=== PATIENT | female | born 1970 | race Caucasian/White ===

== ENCOUNTER 2016-06-26 08:41 | Emergency (ER) | payer BC ==
[2016-06-26 10:12] VITALS: BP 125/73
--- NOTE | 2016-06-26 10:49 | UC ---
Elbow Pain - HPI Summary HPI Summary: 45 yo female with right elbow x 1 week slipped at work and grabbed railing which resulted in twisting her right elbow she is right handed no hx of elbow problems in past - History of Current Complaint Chief Complaint: UCUpperExtremity Stated Complaint: RIGHT ELBOW COMPLAINT Time Seen by Provider: 06/26/16 10:32 Hx Obtained From: Patient Hx Last Menstrual Period: 06/24/16 Onset/Duration: Weeks Severity Initially: Moderate Severity Currently: Mild Pain Intensity: 4 Pain Scale Used: 0-10 Numeric Character: Aching, Throbbing Aggravating Factor(s): Movement, Pulling, Twisting Alleviating Factor(s): Rest - Allergies/Home Medications Allergies/Adverse Reactions: Allergies Allergy/AdvReac Type Severity Reaction Status Date / Time Naproxen [From Naprosyn] Allergy Severe Rash Verified 06/26/16 09:57 PMH/Surg Hx/FS Hx/Imm Hx Previously Healthy: Yes Endocrine History Of: Denies: Diabetes, Thyroid Disease, Hyperthyroidism, Hypothyroidism, Dyslipidemia Cardiovascular History Of: Denies: Cardiac Disorders, Hypertension, Pacemaker/ICD, Myocardial Infarction , Congestive Heart Failure, Atrial Fibrillation, Deep Vein Thrombosis, Bleeding Disorders Respiratory History Of: Denies: COPD, Asthma, Bronchitis, Pneumonia, Pulmonary Embolism GI/ History Of: Denies: Gastroesophageal Reflux, Ulcer, Gastrointestinal Bleed, Gall Bladder Disease, Kidney Stones, Diverticulitis, Renal Disease, Urosepsis Neurological History Of: Denies: TIA, CVA, Dementia, Seizures, Migraine Psychological History Of: Denies: Anxiety, Depression, Bipolar Disorder, Schizophrenia, Post Traumatic Stress Disorder Cancer History Of: Denies: Lung Cancer, Colorectal Cancer, Breast Cancer, Prostate Cancer, Cervical Cancer Other History Of: Negative For: HIV, Hepatitis B, Hepatitis C - Surgical History Surgical History: Yes Surgery Procedure, Year, and Place: . SKIN CANCER--2013 - Family History Known Family History: Positive: Other - DJD Family History: no known cardio-vascular issues in family - Social History Alcohol Use: None Substance Use Type: None Smoking Status (MU): Light Every Day Tobacco Smoker Type: Cigarettes Amount Used/How Often: 1/2 PPD Length of Time of Smoking/Using Tobacco: 25 Years Have You Smoked in the Last Year: Yes - Immunization History Most Recent Influenza Vaccination: Not the 2016/2016 Season Review of Systems Constitutional: Negative Skin: Negative Eyes: Negative ENT: Negative Respiratory: Negative Cardiovascular: Negative Gastrointestinal: Negative Genitourinary: Negative Motor: Negative Neurovascular: Negative Musculoskeletal: Arthralgia Neurological: Negative Psychological: Negative All Other Systems Reviewed And Are Negative: Yes Physical Exam Triage Information Reviewed: Yes Appearance: Well-Appearing, No Pain Distress, Well-Nourished Vital Signs: Initial Vital Signs Temp 97.6 F 06/26/16 09:53 Pulse 74 06/26/16 09:53 Resp 16 06/26/16 09:53 BP 125/73 06/26/16 09:53 Pulse Ox 100 06/26/16 09:53 Vital Signs Reviewed: Yes Eyes: Positive: Conjunctiva Clear ENT: Positive: Hearing grossly normal. Negative: Nasal congestion, Nasal drainage, Tonsillar exudate, Trismus, Muffled/hoarse voice Neck: Positive: Supple, Nontender Respiratory: Positive: Lungs clear, Normal breath sounds, No respiratory distress, No accessory muscle use Cardiovascular: Positive: RRR, No Murmur Musculoskeletal: Positive: ROM Intact, No Edema, Other: - tender lateral epicondyle Neurological: Positive: Alert Psychological Exam: Normal Skin Exam: Normal Elbow Pain Course/Dx - Differential Dx/Diagnosis Provider Diagnoses: lateral epicondylitis (right) Discharge - Discharge Plan Condition: Stable Disposition: HOME Prescriptions: Ibuprofen TAB* [Motrin TAB*] 600 mg PO QID PRN #40 tab PRN Reason: Pain Patient Education Materials: Tennis Elbow (ED) Referrals: Arsenio Bui MD [Medical Doctor] - 5 Days (if not better) Additional Instructions: tennis elbow brace/remove at bedtime
--- NOTE | 2016-06-26 11:11 | RAD ---
Indication: Right elbow injury. 4 views of the elbow demonstrates no evidence of joint effusion. No fracture is identified. IMPRESSION: No fracture of the elbow is noted. No joint effusion is noted.
== END 2016-06-26 11:39 | disposition home or self-care (01) ==
LOC: UCCORT 08:41
DX: M77.11 Lateral epicondylitis, right elbow (principal); F17.210 Nicotine dependence, cigarettes, uncomplicated; Z88.8 Allergy status to other drugs, medicaments and biological substances
CPT/HCPCS: 99212; G0463

== ENCOUNTER 2016-10-06 10:03 | Emergency (ER) | payer SELFPAY ==
[2016-10-06 10:53] VITALS: BP 119/70
[2016-10-06] MEDS ORDERED: Ibuprofen TAB* 200 MG PO ONE (11:08)
--- NOTE | 2016-10-06 11:08 | UC ---
Lower Extremity/Ankle HPI - HPI Summary HPI Summary: The patient comes in today for: 1. Right little toe pain: Onset: 15 hours ago. Palliative/provocative: Pressure and walking makes the pain worse. Quality: Burning throbbing, ache. Region: Right fifth toe. Severity: 6/10 rest, and 10/10 with walking. Time: Constant. Associated symptoms: Event: About 8 PM last night she stubbed her right 5th toe into the leg of a chair. Previous treatment: Ibuprofen 600 mg at 9 AM. * - History of Current Complaint Chief Complaint: UCLowerExtremity Stated Complaint: RIGHT FOOT PINKY TOE PAIN Time Seen by Provider: 10/06/16 10:59 Hx Obtained From: Patient Hx Last Menstrual Period: 09/16/16 - Allergies/Home Medications Allergies/Adverse Reactions: Allergies Allergy/AdvReac Type Severity Reaction Status Date / Time Naproxen [From Naprosyn] Allergy Severe Rash Verified 10/06/16 10:53 PMH/Surg Hx/FS Hx/Imm Hx Previously Healthy: Yes Endocrine History Of: Denies: Diabetes, Thyroid Disease, Hyperthyroidism, Hypothyroidism, Dyslipidemia Cardiovascular History Of: Denies: Cardiac Disorders, Hypertension, Pacemaker/ICD, Myocardial Infarction , Congestive Heart Failure, Atrial Fibrillation, Deep Vein Thrombosis, Bleeding Disorders Respiratory History Of: Denies: COPD, Asthma, Bronchitis, Pneumonia, Pulmonary Embolism GI/ History Of: Denies: Gastroesophageal Reflux, Ulcer, Gastrointestinal Bleed, Gall Bladder Disease, Kidney Stones, Diverticulitis, Renal Disease, Urosepsis Neurological History Of: Denies: TIA, CVA, Dementia, Seizures, Migraine Psychological History Of: Denies: Anxiety, Depression, Bipolar Disorder, Schizophrenia, Post Traumatic Stress Disorder Cancer History Of: Denies: Lung Cancer, Colorectal Cancer, Breast Cancer, Prostate Cancer, Cervical Cancer Other History Of: Negative For: HIV, Hepatitis B, Hepatitis C - Surgical History Surgical History: Yes Surgery Procedure, Year, and Place: . SKIN CANCER--2013 - Family History Known Family History: Positive: Cardiac Disease, Hypertension, Other - DJD Family History: no known cardio-vascular issues in family - Social History Alcohol Use: Rare Substance Use Type: None Smoking Status (MU): Current Some Day Smoker Type: Cigarettes Amount Used/How Often: 1 pack weekly Length of Time of Smoking/Using Tobacco: 10 YRS Have You Smoked in the Last Year: Yes - Immunization History Most Recent Influenza Vaccination: NONE Most Recent Tetanus Shot: UTD Most Recent Pneumonia Vaccination: N/A Review of Systems Constitutional: Negative Skin: Negative Eyes: Negative ENT: Negative Respiratory: Negative Cardiovascular: Negative Gastrointestinal: Negative Genitourinary: Negative Musculoskeletal: Arthralgia All Other Systems Reviewed And Are Negative: Yes Physical Exam Triage Information Reviewed: Yes Appearance: Well-Appearing, No Pain Distress, Well-Nourished Vital Signs: Initial Vital Signs Temp 98 F 10/06/16 10:48 Pulse 68 10/06/16 10:48 Resp 16 10/06/16 10:48 BP 119/70 10/06/16 10:48 Pulse Ox 100 10/06/16 10:48 Vital Signs Reviewed: Yes Eyes: Positive: Conjunctiva Clear. Negative: Discharge ENT: Positive: Hearing grossly normal. Negative: Pharyngeal erythema, Nasal congestion, TM bulging, TM dull, TM red, Tonsillar swelling, Tonsillar exudate Dental: Negative: Gross Decay/Caries @, Dental Fracture @ Neck: Positive: Supple, Nontender, No Lymphadenopathy. Negative: Nuchal Rigidity Respiratory: Positive: Chest non-tender, Lungs clear, No respiratory distress, No accessory muscle use. Negative: Crackles, Stridor Cardiovascular: Positive: RRR, No Murmur Abdomen Description: Positive: Nontender, No Organomegaly, Soft. Negative: Distended, Guarding Musculoskeletal: Positive: Strength Intact, No Edema, Other: - Right little toe- -no marked edema, but there is slighty bluish discoloration at the base of the toe. Neurological: Positive: Alert, Muscle Tone Normal Psychological: Positive: Age Appropriate Behavior, Consolable Skin: Negative: rashes, breakdown Diagnostics - Radiology No standard instances Xray Interpretation: Positive (See Comments) - There was a fracture of the proximal phalanx on the right. Radiology Interpretation Completed By: Radiologist Lower Extremity Course/Dx - Differential Dx/Diagnosis Differential Diagnosis/HQI/PQRI: Contusion, Fracture (Closed) Provider Diagnoses: Fracture of the right 5th proximal phalanx. Discharge - Discharge Plan Condition: Stable Disposition: HOME Patient Education Materials: Toe Fracture (ED) Referrals: Emil Orozco [Primary Care Provider] - 2 Weeks (Please keep your foot elevated, taking ibuprofen as needed for pain and apply ice for the first 48 hours--20 minutes on, 20 minutes off.)
--- NOTE | 2016-10-06 11:33 | RAD ---
INDICATION: Right foot injury. TECHNIQUE: 3 views of the right foot were obtained. FINDINGS: There is a transverse fracture of the mid diaphysis of the fifth proximal phalanx. The distal fracture fragment is displaced approximately 1 cortical diameter lateral and 2 cortical diameters inferior and demonstrates dorsal and lateral angulation relative to the proximal phalanx. No additional fractures are seen. Joint spaces appear maintained. IMPRESSION: TRANSVERSE SLIGHTLY DISPLACED, ANGULATED FRACTURE OF THE FIFTH PROXIMAL PHALANX.
== END 2016-10-06 12:06 | disposition home or self-care (01) ==
LOC: UCCORT 10:03
DX: S92.511A Displaced fracture of proximal phalanx of right lesser toe(s), initial encounter for closed fracture (principal); W22.8XXA Striking against or struck by other objects, initial encounter; Y93.9 Activity, unspecified; Y92.9 Unspecified place or not applicable; Z88.6 Allergy status to analgesic agent; Z72.0 Tobacco use
CPT/HCPCS: 99213; A9270-GY; G0463

== ENCOUNTER 2016-11-05 12:46 | Emergency (ER) | payer SELFPAY ==
[2016-11-05 14:00] VITALS: BP 118/67
--- NOTE | 2016-11-05 14:15 | UC ---
Lower Extremity/Ankle HPI - HPI Summary HPI Summary: patient fracture the right 5th toe 1 month ago, still painful and swollen, sometimes numb. cant wear her sneakers. worse at night, - History of Current Complaint Chief Complaint: UCLowerExtremity Stated Complaint: RE-CK RIGHT FOOT PINKY TOE Time Seen by Provider: 11/05/16 14:01 Hx Obtained From: Patient Hx Last Menstrual Period: 10/14/16 ?: No Onset/Duration: Sudden Onset, Lasting Days Severity Initially: Moderate Severity Currently: Moderate Aggravating Factor(s): Standing, Ambulation, Other - wearing shoes Alleviating Factor(s): Rest Able to Bear Weight: Yes - Allergies/Home Medications Allergies/Adverse Reactions: Allergies Allergy/AdvReac Type Severity Reaction Status Date / Time Naproxen [From Naprosyn] Allergy Severe Rash Verified 11/05/16 14:00 PMH/Surg Hx/FS Hx/Imm Hx Previously Healthy: Yes Other History Of: Negative For: HIV, Hepatitis B, Hepatitis C - Surgical History Surgical History: Yes Surgery Procedure, Year, and Place: . SKIN CANCER--2013 - Family History Known Family History: Positive: Cardiac Disease, Hypertension, Other - DJD Family History: no known cardio-vascular issues in family - Social History Alcohol Use: Rare Substance Use Type: None Smoking Status (MU): Current Some Day Smoker Type: Cigarettes Amount Used/How Often: 1 pack weekly Length of Time of Smoking/Using Tobacco: 10 YRS Have You Smoked in the Last Year: Yes - Immunization History Most Recent Influenza Vaccination: NONE Most Recent Tetanus Shot: UTD Most Recent Pneumonia Vaccination: N/A Review of Systems Constitutional: Negative Skin: Negative Eyes: Negative ENT: Negative Respiratory: Negative Cardiovascular: Negative Gastrointestinal: Negative Genitourinary: Negative Motor: Negative Neurovascular: Negative Musculoskeletal: Arthralgia, Decreased ROM, Edema, Myalgia Neurological: Negative Psychological: Negative All Other Systems Reviewed And Are Negative: Yes Physical Exam Triage Information Reviewed: Yes Appearance: Well-Appearing, Well-Nourished, Pain Distress Vital Signs: Initial Vital Signs Temp 98.6 F 11/05/16 13:54 Pulse 74 11/05/16 13:54 Resp 14 11/05/16 13:54 BP 118/67 11/05/16 13:54 Pulse Ox 98 11/05/16 13:54 Vital Signs Reviewed: Yes Eye Exam: Normal Eyes: Positive: Conjunctiva Clear ENT Exam: Normal Dental Exam: Normal Neck exam: Normal Respiratory Exam: Normal Cardiovascular Exam: Normal Abdominal Exam: Normal Bowel Sounds: Positive: Present Musculoskeletal: Positive: Strength Intact, ROM Limited @, Edema @ - in the right 5th toe and base of toe Psychological Exam: Normal Skin Exam: Normal Lower Extremity Course/Dx - Course Course Of Treatment: hx obtained, exam performed ,meds reviewed, xray obtained fracture still noted, placed on crutches and referral to [facility]. - Differential Dx/Diagnosis Differential Diagnosis/HQI/PQRI: Contusion, Dislocation, Fracture (Closed), Infection, Osteomyelitis, Sprain, Strain Provider Diagnoses: right 5th toe fracture, non healing Discharge - Discharge Plan Condition: Stable Disposition: HOME Patient Education Materials: Toe Fracture (ED) Referrals: Emil Orozco [Primary Care Provider] - Brody Luque DPM [Doctor of Podiatric Medicine] - Additional Instructions: 1. Use the crutches until cleared by promotion producer 2. Continue to elevate 3. warm foot soaks 4. follow up with ta promotion producer RYAN
--- NOTE | 2016-11-05 14:35 | RAD ---
Indication: Fracture fifth digit. 3 views of the right fifth digit demonstrates oblique fracture proximal phalanx fifth toe. This is not significantly changed since October 06, 2016. IMPRESSION: Oblique fracture proximal phalanx fifth digit.
== END 2016-11-05 14:38 | disposition home or self-care (01) ==
LOC: UCCORT 12:46
DX: S92.514 Nondisplaced fracture of proximal phalanx of right lesser toe(s) (principal); X58.XXXD Exposure to other specified factors, subsequent encounter; Z88.6 Allergy status to analgesic agent; Z72.0 Tobacco use
CPT/HCPCS: 99211; G0463

== ENCOUNTER 2017-03-04 10:55 | Emergency (ER) | payer BC, MEDICAID ==
[2017-03-04 12:24] VITALS: BP 104/62
--- NOTE | 2017-03-04 12:41 | UC ---
Back Pain HPI - HPI Summary HPI Summary: low back pain x 1 month, ? injury to lower back moving furnitures no radiation of the pain , pain became worse over the past 2 days - History of Current Complaint Chief Complaint: UCBackPain Stated Complaint: LOWER BACK PAIN Time Seen by Provider: 03/04/17 12:26 Hx Obtained From: Patient Hx Last Menstrual Period: 03/04/17 ?: No Onset/Duration: Gradual Onset, Lasting Weeks - 4, Still Present, Worse Since - past 2 days Timing: Constant Severity Initially: Moderate Severity Currently: Severe Back Pain: Is Discrete @ - lower back Character: Aching, Spasmodic Aggravating Factor(s): Movement, Lifting, Bending, Walking, Cough Alleviating Factor(s): Rest Associated Signs And Symptoms: Positive: Pain with Weight Bearing. Negative: Swelling, Redness, Bruising, Fever, Weakness, Numbness, Tingling, Abdominal Pain , Flank Pain, Bladder Incontinence, Bowel Incontinence, Weight Loss - Allergies/Home Medications Allergies/Adverse Reactions: Allergies Allergy/AdvReac Type Severity Reaction Status Date / Time Naproxen [From Naprosyn] Allergy Severe Rash Verified 03/04/17 12:19 Home Medications: Home Medications Acetaminophen [Acetaminophen Extra Stren] 500 - 1,000 mg PO Q6H PRN 03/04/17 [ History Confirmed 03/04/17] PMH/Surg Hx/FS Hx/Imm Hx Previously Healthy: Yes Other History Of: Negative For: HIV, Hepatitis B, Hepatitis C - Surgical History Surgical History: Yes Surgery Procedure, Year, and Place: . SKIN CANCER--2013 - Family History Known Family History: Positive: Cardiac Disease, Hypertension, Other - DJD Family History: no known cardio-vascular issues in family - Social History Alcohol Use: Occasionally Substance Use Type: None Smoking Status (MU): Heavy Every Day Tobacco Smoker Type: Cigarettes Amount Used/How Often: 1/2 PPD Length of Time of Smoking/Using Tobacco: Since Age 23 Have You Smoked in the Last Year: Yes - Immunization History Most Recent Influenza Vaccination: Not the 2017/2017 Season Most Recent Tetanus Shot: UTD Most Recent Pneumonia Vaccination: N/A Review of Systems Constitutional: Negative Skin: Negative Eyes: Negative ENT: Negative Respiratory: Negative Is Patient Immunocompromised?: No All Other Systems Reviewed And Are Negative: Yes Physical Exam Triage Information Reviewed: Yes Appearance: Well-Nourished, Pain Distress Vital Signs: Initial Vital Signs Temp 98 F 03/04/17 12:16 Pulse 88 03/04/17 12:16 Resp 16 03/04/17 12:16 BP 104/62 03/04/17 12:16 Pulse Ox 100 03/04/17 12:16 Vital Signs Reviewed: Yes Eyes: Positive: Conjunctiva Clear ENT: Positive: Normal ENT inspection, Hearing grossly normal, Pharynx normal Neck: Positive: Supple, Nontender, No Lymphadenopathy Respiratory: Positive: Chest non-tender, Lungs clear, Normal breath sounds Cardiovascular: Positive: RRR, No Murmur, Pulses Normal Abdominal Exam: Normal Abdomen Description: Positive: Nontender, Soft Bowel Sounds: Positive: Present Musculoskeletal: Positive: Other: - lower back : no swelling, no erythema, + tenderness, limited ROM on flexion . Back Pain Course/Dx - Differential Dx/Diagnosis Provider Diagnoses: lower back strain Discharge - Discharge Plan Condition: Stable Disposition: HOME Prescriptions: Cyclobenzaprine TAB* [Flexeril 10 MG TAB*] 10 mg PO BID #20 tab Ibuprofen TAB* [Motrin TAB* 800 MG] 800 mg PO Q8H #30 tab Patient Education Materials: Low Back Strain (ED) Referrals: Emil Orozco [Primary Care Provider] - 7 Days
== END 2017-03-04 12:42 | disposition home or self-care (01) ==
LOC: UCCORT 10:55
DX: S39.012A Strain of muscle, fascia and tendon of lower back, initial encounter (principal); F17.210 Nicotine dependence, cigarettes, uncomplicated; X50.0XXA Overexertion from strenuous movement or load, initial encounter; Z88.6 Allergy status to analgesic agent; Z85.828 Personal history of other malignant neoplasm of skin
CPT/HCPCS: 99212; G0463

== ENCOUNTER 2018-02-13 08:34 | Emergency (ER) | payer OTHER ==
[2018-02-13 08:55] VITALS: BP 126/76
[2018-02-13] MEDS ORDERED: Acetaminophen TAB* 325 MG PO ONE (09:35)
--- NOTE | 2018-02-13 10:35 | RAD ---
Indication: LEFT greater than RIGHT pelvic pain. History of ovarian cysts. Comparison: No relevant prior exams available on the [facility] [place] PACS for comparison. Technique: Transvaginal technique pelvic ultrasound. Report: 7.1 x 4.4 x 6.0 cm retroverted uterus is remarkable for a 1.3 cm maximum dimension anterior subserosal fibroid without resulting impression on the endometrium. 8.1 mm endometrium. Physiologic trace volume of free pelvic fluid. 3.6 x 2.0 x 2.3 cm RIGHT ovary with documented vascular flow is remarkable for a 2.0 cm maximum dimension unilocular simple cyst consistent with a follicular cyst. 2.4 x 1.4 x 1.6 cm LEFT ovary with documented vascular flow is unremarkable. Negative for extra ovarian adnexal region lesions. IMPRESSION: #. Small follicular cyst RIGHT ovary without concern. #. 1.3 cm subserosal uterine fibroid without resulting impression on the endometrium.
--- NOTE | 2018-02-14 09:21 | UC ---
Complaint Female HPI - HPI Summary HPI Summary: Pt present with 4 days intermittent low pelvic pain. Pt states had a tubal ligation July. AT this time also had ovarian cysts removed. Pt states since this time has low pelvic pain with menses. Pt stats seems "to be getting worse. " Pt with menses starting Friday. Pt states concerned return of ovarian cyst. Pt called rehab office coordinator but can't be seen for several weeks sp came here. Pt states pain improved today. No fever, chills. no n/v/d. no vaginal discharge. Pt has taken APAP with little improvement. No concern for STD Pt medication reviewed this visit - History Of Current Complaint Chief Complaint: UCAbdominalPain Stated Complaint: PELVIC PAIN Time Seen by Provider: 02/13/18 09:15 Hx Obtained From: Patient, Medical Records Hx Last Menstrual Period: 02/01/18 ?: No Pain Intensity: 4 Pain Scale Used: 0-10 Numeric - Allergies/Home Medications Allergies/Adverse Reactions: Allergies Allergy/AdvReac Type Severity Reaction Status Date / Time bacitracin Allergy Unknown Rash Verified 02/13/18 08:46 naproxen Allergy "lips Verified 02/13/18 09:36 swell" Home Medications: Home Medications NK [No Home Medications Reported] 02/13/18 [History Confirmed 02/13/18] PMH/Surg Hx/FS Hx/Imm Hx Previously Healthy: Yes Other History Of: Negative For: HIV, Hepatitis B, Hepatitis C - Surgical History Surgical History: Yes Surgery Procedure, Year, and Place: . SKIN CANCER--2013. TUBAL LIGATION, JUN 2017 - Family History Known Family History: Positive: Cardiac Disease, Hypertension, Other - DJD Family History: no known cardio-vascular issues in family - Social History Occupation: Employed Full-time Lives: With Family Alcohol Use: Occasionally Substance Use Type: None Smoking Status (MU): Heavy Every Day Tobacco Smoker Type: Cigarettes Amount Used/How Often: 1/2 PPD Length of Time of Smoking/Using Tobacco: Since Age 23 Have You Smoked in the Last Year: Yes - Immunization History Most Recent Influenza Vaccination: Not the 2017/2017 Season Most Recent Tetanus Shot: UTD Most Recent Pneumonia Vaccination: N/A Review of Systems Constitutional: Negative Gastrointestinal: Abdominal Pain Genitourinary: Negative All Other Systems Reviewed And Are Negative: Yes Physical Exam - Summary Physical Exam Summary: Vital Signs Reviewed: Yes A+Ox3, no distress Eyes: Conjunctiva Clear, MENDEL. EOM intact and full ENT: Hearing grossly normal TM x 2 clear, mmoist, uvula midline, no exudate, no erythema Neck: Positive: Supple Respiratory: Positive: No respiratory distress, No accessory muscle use + CTA throughout no w/r Cardiovascular: RRR nl s1, s2 no m/r CBT <2 sec abd soft + BS nd no guarding, no distension, very mild lower abd pain with direct palp. No cva no guarding or rebound Musculoskeletal Exam: SINGH x 4 without difficulty Strength Intact, ROM Intact Neurological: Positive: Alert, + sensation throughout Psychological: Positive: Normal Response To Family Skin: Positive: no rash, no ecchymosis Triage Information Reviewed: Yes Vital Signs: Initial Vital Signs Temp 97.8 F 02/13/18 08:47 Pulse 86 02/13/18 08:47 Resp 18 02/13/18 08:47 BP 126/76 02/13/18 08:47 Pulse Ox 100 02/13/18 08:47 Diagnostics - Radiology No standard instances Radiology Interpretation Completed By: Radiologist - Patient Name: ARJUN MORRISSEY Medical Record#: [id number] Ordering Physician: Shanon Barillas MD Acct.#: [id number] : 1970 Age: 47 Sex: F Location: [facility] Exam Date: 02/13/18935 ADM Status: REG ER Order Information: US TRANSVAGINAL Accession Number: [id number] CPT: 18265 Indication: LEFT greater than RIGHT pelvic pain. History of ovarian cysts. Comparison: No relevant prior exams available on the [facility] PACS for comparison. Technique: Transvaginal technique pelvic ultrasound. Report: 7.1 x 4.4 x 6.0 cm retroverted uterus is remarkable for a 1.3 cm maximum dimension anterior subserosal fibroid without resulting impression on the endometrium. 8.1 mm endometrium. Physiologic trace volume of free pelvic fluid. 3.6 x 2.0 x 2.3 cm RIGHT ovary with documented vascular flow is remarkable for a 2.0 cm maximum dimension unilocular simple cyst consistent with a follicular cyst. 2.4 x 1.4 x 1.6 cm LEFT ovary with documented vascular flow is unremarkable. Negative for extra ovarian adnexal region lesions. IMPRESSION: #. Small follicular cyst RIGHT ovary without concern. #. 1.3 cm subserosal uterine fibroid without resulting impression on the endometrium. ___ <Electronically signed by Kevin Galo MD in OV> 02/13/18 1032 Dictated By: Kevin Galo MD Dictated Date/Time: 02/13/18 1032 Transcribed Date/Time: 02/13/18 1028 Copy to: CC:Mala FERNANDOP; Shanon Barillas MD Imaging - [facility] Imaging - [facility] [address] [address] ph [phone]) ph [phone]) ph ([phone]) This report is only to be considered final once signed by the Provider(s) as displayed in the "<Electronically Signed by >" field (s). Absence of a signature indicates the report is in a draft status and still needs to be finalized. In the event this document was created by someone other than the signing Provider, the individual initiating the document will be listed in the "Entered by:" or "Dictated by:" elizabeth. 1 of 1 Re-Evaluation - Re-Evaluation First Eval Comment: reviewed ultrasound with patient. d/w fibroid. will f/u with rehab office coordinator. CD of images given. motrin/apap. return precautions. comfrota and agreement with plan Complaint Female Dx - Course Course Of Treatment: Pt with cyclic lower pelvic discomfort -correlates with menses since tubal ligation. Pt states this week had significant discomfort sx better today - pt with ho ovarian cysts and inquired if cause. at present little discomfort. vss. non concerning exam. will check urine and ultrasound. pt declined analgesia - Differential Dx/Diagnosis Provider Diagnoses: uterine fibroid. functional ovarian cyst Discharge - Sign-Out/Discharge Documenting (check all that apply): Patient Departure All imaging exams completed and their final reports reviewed: Yes - Discharge Plan Condition: Stable Disposition: HOME Patient Education Materials: Dysmenorrhea (ED), Ovarian Cyst (ED) Referrals: Emil Orozco [Primary Care Provider] - Additional Instructions: - Okay to take Tylenol every 6 hours for pain. take with food - apply heating to your abdomen - Contact your lab nurse to schedule a follow-up appointment. - If your pain returns, you develop fevers, vomiting or other concerns it is recommended you go directly to the emergency department for further evaluation - Billing Disposition and Condition Condition: STABLE Disposition: Home
== END 2018-02-13 10:55 | disposition home or self-care (01) ==
LOC: UCCORT 08:34
DX: F17.210 Nicotine dependence, cigarettes, uncomplicated (principal); D25.2 Subserosal leiomyoma of uterus; N83.01 Follicular cyst of right ovary; Z88.6 Allergy status to analgesic agent; Z88.3 Allergy status to other anti-infective agents
CPT/HCPCS: 76830; 81003; 84702; 99212; A9270-GY; G0463

== ENCOUNTER 2018-03-15 11:06 | Emergency (ER) | payer OTHER ==
[2018-03-15 12:52] VITALS: BP 138/72
--- NOTE | 2018-03-15 13:10 | UC ---
Neck Pain HPI - HPI Summary HPI Summary: Pt c/o gradual onset of upper back and neck pain and stiffness that began 6 days ago. Pt has been bent position for prolonged periods of time during the for task at work. Pt reports that she has tingling and buring pain that radiated from posterior cervical neck to upper extremities. - History of Current Complaint Chief Complaint: UCUpperExtremity Stated Complaint: NECK AND SHOULDER PAIN Time Seen by Provider: 03/15/18 12:57 Hx Obtained From: Patient Hx Last Menstrual Period: 02/01/18 ?: No Onset/Duration Of Injury/Symptoms: Days Mechanism Of Injury: No Known Trauma Timing: Constant Onset/Duration: Gradual Onset, Still Present Severity: Moderate Pain Intensity: 7 Location: Diffuse Character: Dull, Aching, Stiff, Burning Aggravating Factors: Movement Alleviating Factors: Position Associated Signs & Symptoms: Positive: Weakness, Paresthesia - Risk Factors Meningitis Risk Factors: Negative - Allergies/Home Medications Allergies/Adverse Reactions: Allergies Allergy/AdvReac Type Severity Reaction Status Date / Time bacitracin Allergy Unknown Rash Verified 02/13/18 08:46 naproxen Allergy "lips Verified 02/13/18 09:36 swell" Home Medications: Home Medications Acetaminophen [Tylenol Extra Strength] 1,000 mg PO ONCE 03/15/18 [History Confirmed 03/15/18] Naproxen Sodium [Aleve] 220 mg PO ONCE 03/15/18 [History Confirmed 03/15/18] PMH/Surg Hx/FS Hx/Imm Hx Previously Healthy: Yes Other History Of: Negative For: HIV, Hepatitis B, Hepatitis C - Surgical History Surgical History: Yes Surgery Procedure, Year, and Place: . SKIN CANCER--2013. TUBAL LIGATION, JUN 2017 - Family History Known Family History: Positive: Cardiac Disease, Hypertension, Other - DJD Family History: no known cardio-vascular issues in family - Social History Occupation: Employed Full-time Lives: With Family Alcohol Use: Occasionally Substance Use Type: None Smoking Status (MU): Heavy Every Day Tobacco Smoker Type: Cigarettes Amount Used/How Often: 1/2 PPD Length of Time of Smoking/Using Tobacco: Since Age 23 Have You Smoked in the Last Year: Yes - Immunization History Most Recent Influenza Vaccination: Not the Season Most Recent Tetanus Shot: UTD Most Recent Pneumonia Vaccination: N/A Review Of Systems Constitutional: Positive: Negative Skin: Positive: Negative Eyes: Positive: Negative ENT: Positive: Negative Respiratory: Positive: Negative Cardiovascular: Positive: Negative Gastrointestinal: Positive: Negative Genitourinary: Positive: Negative Musculoskeletal: Positive: Myalgia - upper back, neck Neurological: Positive: Negative Psychological: Positive: Negative All Other Systems Reviewed And Are Negative: Yes Physical Exam Triage Information Reviewed: Yes Appearance: Pain Distress Vital Signs: Initial Vital Signs Temp 98.8 F 03/15/18 12:44 Pulse 82 03/15/18 12:44 Resp 14 03/15/18 12:44 BP 138/72 03/15/18 12:44 Pulse Ox 99 03/15/18 12:44 Vital Signs Reviewed: Yes Eye Exam: Normal ENT Exam: Normal Dental Exam: Normal Neck exam: Normal Respiratory Exam: Normal Cardiovascular Exam: Normal Musculoskeletal: Positive: ROM Limited @ - neck, Other: - palpaple tender trigger point in right upper mid trapezius along supperior border of scapula Neurological Exam: Normal Psychological Exam: Normal Skin Exam: Normal Neck Pain Course/Dx - Differential Dx/Diagnosis Differential Dx/HQI/PQRI: Sprain, Strain, Torticollis Provider Diagnoses: trigger point tenderness. muscle spasm Discharge - Sign-Out/Discharge Documenting (check all that apply): Patient Departure All imaging exams completed and their final reports reviewed: No Studies - Discharge Plan Condition: Stable Disposition: HOME Prescriptions: Cyclobenzaprine TAB* [Flexeril 10 MG TAB*] 10 mg PO Q8H PRN #15 tab PRN Reason: Pain Patient Education Materials: Trigger Point Pain (ED), Muscle Spasm (ED) Forms: *Work Release Referrals: Emil Orozco [Primary Care Provider] - If Needed - Billing Disposition and Condition Condition: STABLE Disposition: Home
== END 2018-03-15 13:22 | disposition home or self-care (01) ==
LOC: UCCORT 11:06
DX: M79.10 Myalgia, unspecified site (principal); F17.210 Nicotine dependence, cigarettes, uncomplicated; Z88.1 Allergy status to other antibiotic agents; Z88.6 Allergy status to analgesic agent; Z85.828 Personal history of other malignant neoplasm of skin
CPT/HCPCS: 99212; G0463